=== PATIENT | female | born 1945 | race Two or more races ===

== ENCOUNTER 2018-11-07 11:01 | Outpatient (CLI) | payer OTHER | END 2018-11-07 11:09 | disposition home or self-care (01) | LOC: SONOGRAMA 11:01 | DX: R59.0 Localized enlarged lymph nodes (principal) ==

== ENCOUNTER 2019-08-05 09:23 | Outpatient (CLI) | payer OTHER | END 2019-08-05 09:38 | disposition home or self-care (01) | LOC: NUCLEAR 09:23 | DX: R07.89 Other chest pain (principal); I25.10 Atherosclerotic heart disease of native coronary artery without angina pectoris; I50.89 Other heart failure ==

== ENCOUNTER 2020-11-30 11:33 | Outpatient (CLI) | payer OTHER | END 2020-11-30 11:42 | disposition home or self-care (01) | LOC: MAMO-SONO 11:33 | PROVIDERS: ATTEND Internal Medicine | DX: N64.59 Other signs and symptoms in breast (principal); E04.1 Nontoxic single thyroid nodule; Z12.31 Encounter for screening mammogram for malignant neoplasm of breast; R73.01 Impaired fasting glucose; I10 Essential (primary) hypertension ==

== ENCOUNTER 2021-06-16 08:32 | Outpatient (CLI) | payer OTHER | END 2021-06-16 08:39 | disposition home or self-care (01) | LOC: RX STUDY 08:32 | PROVIDERS: ATTEND Internal Medicine Gastroenterology | DX: K63.89 Other specified diseases of intestine (principal) ==

== ENCOUNTER → 2021-10-26 | Outpatient (CLI) | payer OTHER | END | disposition home or self-care (01) | LOC: PPH VACUNA 12:37 | PROVIDERS: ATTEND Emergency Medicine Pediatric Emergency Medicine | DX: Z23 Encounter for immunization (principal) ==

== ENCOUNTER 2022-07-11 10:15 | Outpatient (CLI) | payer OTHER | END 2022-07-11 10:22 | disposition home or self-care (01) | LOC: SONOGRAMA 10:15 | PROVIDERS: ATTEND Pathology Anatomic Pathology & Clinical Pathology | DX: E04.2 Nontoxic multinodular goiter (principal) ==

== ENCOUNTER 2025-03-06 10:03 | Outpatient (CLI) | payer OTHER | END 2025-03-06 10:07 | disposition home or self-care (01) | LOC: MAMO-SONO 10:03 | PROVIDERS: ATTEND Specialist | DX: D24.2 Benign neoplasm of left breast (principal); Z12.31 Encounter for screening mammogram for malignant neoplasm of breast ==

== ENCOUNTER 2025-07-09 07:34 | Outpatient (CLI) | payer OTHER | END 2025-07-09 07:39 | disposition home or self-care (01) | LOC: SONOGRAMA 07:34 | PROVIDERS: ATTEND Internal Medicine Cardiovascular Disease | DX: E03.9 Hypothyroidism, unspecified (principal) ==

== ENCOUNTER → 2025-07-31 | Outpatient (CLI) | payer OTHER | END | disposition home or self-care (01) | LOC: SONOGRAMA 14:53 | PROVIDERS: ATTEND Pathology Anatomic Pathology | DX: D34 Benign neoplasm of thyroid gland (principal); E06.3 Autoimmune thyroiditis; E07.89 Other specified disorders of thyroid; E04.1 Nontoxic single thyroid nodule ==